=== PATIENT | male | born 1965 | race African-American/Black ===

== ENCOUNTER 2017-02-18 09:55 | Emergency (ER) | payer MEDICAID ==
[~2017-02-18] VITALS: Ht 188 cm; Wt 103.0 kg
[~2017-02-18 09:55] MED LIST: ASPI-1160; BENA5TAB; COR6; FAMO40TA70; PRAV40TA; PROAIR; QUET100T; SERT25TA; TRAM50TA3 PO
[2017-02-18] MEDS ORDERED: ONDANSETRON HCL 4MG/2ML VIAL IV STA (11:49)
[2017-02-18] MEDS ORDERED: MORPHINE SULFATE 4 MG/ML CPJ (NOT FOR IM USE) IV ONE (12:00)
[2017-02-18 12:20] LABS: BASOPHILS % 0.7 % (0.0-2.0); EOSINOPHILS % 2.5 % (0.0-5.0); HEMATOCRIT. 42.8 % (42.0-52.0); HEMOGLOBIN. 14.9 g/dL (14.0-18.0); LYMPHOCYTES % 33.9 % (20.0-50.0); MEAN CORPUSCULAR HEMOGLOBIN 31.8 pg (28.0-32.0); MEAN CORPUSCULAR VOLUME 91.7 fL (80.0-94.0); MEAN PLATELET VOLUME 7.8 fl (7.4-10.4); MONOCYTES % 10.5 % (2.0-8.0); NEUTROPHILS % 52.4 % (40.0-76.0); PLATELET 193 x1000/uL (130-400); RED BLOOD CELL COUNT 4.67 mill/uL (4.7-6.1); RED CELL DISTRIBUTION WIDTH 14.5 % (11.6-14.6)
[2017-02-18 12:35] LABS: PARTIAL THROMBOPLASTIN TIME 25.1 sec (23.4-31.0); PROTHROMBIN TIME 10.5 sec (9.4-11.6)
[2017-02-18 12:37] LABS: CARBON DIOXIDE 25 mEq/L (21-32); CHLORIDE 109 mEq/L (98-107); TROPONIN I < 0.02 ng/mL (0.00-0.04)
[2017-02-18 12:48] LABS: *AMPHETAMINES SCREEN URINE NEGATIVE (NEGATIVE); *BARBITURATES SCREEN URINE NEGATIVE (NEGATIVE); *BENZODIAZEPINES SCREEN URINE NEGATIVE (NEGATIVE); *COCAINE SCREEN URINE NEGATIVE (NEGATIVE); CANNABINOID URINE SCREEN PRESUMTIVE POSITIVE (NEGATIVE); METHADONE URINE SCREEN NEGATIVE (NEGATIVE); OPIATES URINE SCREEN NEGATIVE (NEGATIVE); PHENCYCLIDINE URINE SCREEN NEGATIVE (NEGATIVE)
[2017-02-18 16:38] VITALS: BP 118/64
== END 2017-02-18 16:40 | disposition home or self-care (01) ==
LOC: ER 10:05
DX: R07.89 Other chest pain (principal); J98.11 Atelectasis; R00.1 Bradycardia, unspecified; I11.9 Hypertensive heart disease without heart failure; F31.9 Bipolar disorder, unspecified; F32.9 Major depressive disorder, single episode, unspecified; F12.10 Cannabis abuse, uncomplicated
CPT/HCPCS: 36415; 71010; 80053; 80305; 84484; 85025; 85610; 85730; 93005; 96374; 96375; 99285; J2270; J2405; Z7610